=== PATIENT | female | born 1965 | race Caucasian/White ===

== ENCOUNTER → 2017-09-06 | Outpatient (CLI) | payer BC ==
--- NOTE | 2017-09-06 10:25 | Diagnostic Imaging Report ---
EXAMINATION: MRI of the lumbar spine without contrast HISTORY: Low back pain radiating on the side and front of the left lower extremity with weakness, history of remote trauma. COMPARISON: None. TECHNIQUE: Sagittal T1, T2, STIR; axial T2 and proton density. FINDINGS: It is assumed that there are 5 lumbar vertebrae. Curvature/Alignment: Normal lordosis. Mild levoscoliosis with apex at L4-5 Vertebrae: No evidence of recent fracture, infection, or neoplasm. Chronic endplate degenerative changes mainly on the right side at L4-5. Conus: Normal, terminating at L1-L2 Cauda equina: Unremarkable. Lower thoracic: Unremarkable. Paraspinal soft tissues: Mild paraspinal structure atrophy Degenerative changes: L1-L2: Unremarkable. L2-L3: Minimal symmetric disc bulge and facet arthrosis. Very minimal retrolisthesis. No canal or foraminal stenosis L3-L4: Mild decreased disc height and T2 signal intensity, asymmetric to left disc bulge, bilateral facet arthrosis. Minimal foraminal narrowing. No nerve root compression L4-L5: Decreased disc height and T2 signal intensity, asymmetric to the right disc osteophyte and right greater than left facet arthrosis. Mild right foraminal stenoses without evidence of nerve root compression. L5-S1: Asymmetric to left disc osteophyte and facet arthrosis minimally on the left. Narrowing of the left lateral recess. Moderate left foraminal stenoses, with possible minimal displacement upon the exiting left L5 nerve root. IMPRESSION: 1. Moderate degenerative foraminal stenosis on the left at L5-S1 as detailed above. 2. Mild degenerative narrowing of the left lateral recesses at L5-S1. 3. Mild degenerative foraminal stenosis on the right at L4-L5. Signed by: Dr. Celestina Mo M.D. on 09/06/2017 10:21 AM
== END ==
LOC: MRI 07:27
PROVIDERS: ATTEND Family Medicine
DX: M47.816 Spondylosis without myelopathy or radiculopathy, lumbar region (principal); M51.86 Other intervertebral disc disorders, lumbar region
CPT/HCPCS: 72148

== ENCOUNTER → 2022-07-02 | Outpatient (CLI) | payer BC | LOC: US 08:27 | PROVIDERS: ATTEND Family Medicine | DX: R74.8 Abnormal levels of other serum enzymes (principal) | CPT/HCPCS: 76705 ==